=== PATIENT | female | born 1975 | race Two or more races ===

== ENCOUNTER 2020-12-19 15:30 | Outpatient (RCR) | payer OTHER, SELFPAY ==
--- NOTE | 2020-11-09 11:30 | PTOPEVAL ---
INITIAL PHYSICAL THERAPY EVALUATION and PLAN OF CARE Thank you for referring Diego [facility] to [facility] Diego is scheduled to be seen for physical therapy? 2x/week for 4 weeks. Please review, sign, date and return this plan of care WILFRID. I agree with and certify that the following plan of care is medically necessary. Referring Physician Date Admitting Provider: Attending Provider: Dahlia Ochoa DO Referring Provider: *PT Outpatient Evaluation Start: 11/09/20 10:23 Freq: Status: Active Protocol: Document 11/09/20 10:23 GENARO (Rec: 11/09/20 11:29 GENARO [id number]) Therapy Assessment Status Assessment Status Assessment Status Evaluation Outpatient Past Medical History Past Medical History Source of Past Medical History Patient Musculoskeletal History Hx Back Pain Yes Reproductive History Hx Section Yes: 2006 Evaluation Information Problem Diagnosis radiculopathy,lumbar region, dorsalgia Onset July 2020 Subjective Information Began hurting in back and R Query Text:As Reported By Patient/ leg a while ago - but didn't Family get bad until to move to [place] - February 2020. When was ill - helped to take care of him - he has since . With the move - increased lifting and moving items - pain got worse. Very painful in back - sharp pain. Pain runs down R leg - lateral aspect of R foot and lateral lower leg. Pain will disturb her sleep. Increase pain in the mornings. Once she gets moving - pain lessens right away. Less discomfort with walking. Bad with sitting . In standing - a little pain . 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 Home Meds Must Be Re-entered With Each Visit. Home Setting Home Type House,Multiple Levels Environmental Barriers Stairs, Greater than 4 Living Situation With Minor Child,With
--- NOTE | 2020-11-15 08:24 | PCPTNOTE ---
Patient disclosed personal information stating her and her were having trouble. Patient reports her can be very mean and scary at times. Patient reports her has PTSD from his career in . Patient did not say that she was in any physical harm at this time. Patient reports her last past away 2 years ago and she suffered from depression and that is when her back started to hurt.
--- NOTE | 2020-12-03 16:37 | PTOPEVAL ---
PHYSICAL THERAPY RE-EVALUATION and UPDATED PLAN OF CARE Thank you for referring Diego Maldonado to [facility].? Diego has made good gains in PT, but there is still some peripheralization of symptoms into R lateral thigh which I would like to reduce further as well increase core strength and awareness. She is scheduled to continue in physical therapy? 1x/week for 4 weeks. Please review, sign, date and return this plan of care WILFRID. I agree with and certify that the following plan of care is medically necessary. Referring Physician Date Admitting Provider: Attending Provider: Dahlia Ochoa DO Referring Provider: *PT Outpatient Evaluation Start: 11/09/20 10:23 Freq: Status: Active Protocol: Document 12/03/20 15:33 GENARO (Rec: 12/03/20 16:36 GENARO [id number]) Therapy Assessment Status Assessment Status Assessment Status Re-evaluation Evaluation Information Problem Diagnosis radiculopathy,lumbar region, dorsalgia Subjective Information Beryl reports sitting Query Text:As Reported By Patient/ discomfort is only mild now. Family She reports performing repeated trunk extension with work activities. She does not do much heavy lifting at work - but will on occasions. Still constantly busy at home. Pain Assessment Timing of Pain Assessment Timing of Pain Assessment Assessment Pain Scale Pain Scale Used Numeric (1 - 10) Self Report Pain Assessment Lower Back Reported Pain Level 1 Pain Description Aching,Tingling Radicular Pain Location mid lateral R thigh Lowest Pain Intensity 1 Greatest Pain Intensity 3 Pain Score Pain Score 1: Self Report Interventions Used Interventions Used By Clinicians Electrical Stimulation, Exercise,Heat,Manual Therapy Techniques Cervical and Lumbar ROM Lumbar ROM Lumbar Flexion (0-90) 65 Query Text:Active in Degrees Lumbar Extension (0-40) 15 Query Text:Active in Degrees Lumbar Lateral Flexion Right (0-40) 10 Query Text:Active in Degrees Lumbar Lateral Flexion Left (0-40) 15 Query Text:Active in Degrees PT Clinical Summary Clinical Summary Protocol: PTEVCODE PT Clinical Summary Modified Oswestry LBP Questionnaire - 16% Diego has made significant gains in PT - R LE symptoms have centralized from R toe region to proximal/mid lateral thigh prior to PT - after PT
--- NOTE | 2020-12-26 16:09 | PCPTNOTE ---
Patient did not show up for scheduled appointment this date. She has been late for the last 2 appointments. Will call prior to next appointment as reminder.
--- NOTE | 2021-01-04 15:50 | PCPTNOTE ---
Patient did not show up for scheduled appointment this date. This was her re-evaluation appointment. Will see if she calls to reschedule.
--- NOTE | 2021-01-14 13:58 | PCPTNOTE ---
PHYSICAL THERAPY DISCHARGE SUMMARY Admitting Provider: Attending Provider: Dahlia Ochoa DO Patient:Diego Maldonado Date of :1975 Diego has not returned for any further treatments since 12/19/2020. I needed to call her for the last 2 appointments that she attended and she did not show for the final 2 appointments. Therefore she will be discharged at this time. Patient?s initial visit was on 11/09/2020 11:00 and she had a total of 10 visits. The goals have been partially met. When she was last seen on 12/19/20 - her R LE radicular symptoms had peripheralized all the way to the ankle again - but did not go into her R foot. After treatment, her symptoms did centralize again. She had been performing her extension exercises. Work had increased in work load due to being short staffed. Thank you for referring this patient to [facility]. Please review, sign, date and return this discharge summary WILFRID. I have been updated about Diego's current status and I agree with discharge from the above service at this time. Referring Physician Date
== END 2021-01-24 08:39 | disposition home or self-care (01) ==
LOC: ANHHIPT 15:30
PROVIDERS: PCP Family Medicine; Visit Provider Family Medicine
DX: M54.9 Dorsalgia, unspecified (principal); M54.16 Radiculopathy, lumbar region
CPT/HCPCS: 97014; 97110; 97140; 97161; G0283

== ENCOUNTER 2021-11-15 09:15 | Outpatient (RCR) | payer OTHER, SELFPAY ==
--- NOTE | 2021-11-12 08:56 | PTOPEVAL ---
PHYSICAL THERAPY INITIAL EVALUATION. Thank you for referring Diego Maldonado to [facility].? The patient is scheduled to be seen for therapy? 2x/week for 4 weeks. Please review, sign, date and return this plan of care WILFRID. I agree with and certify that the following plan of care is medically necessary. Referring Physician Date Attending Provider: Dahlia Ochoa DO *PT Outpatient Evaluation Start: 11/11/21 Evaluation Information Diagnosis R shoulder and neck pain Onset increased over the last 4 month Subjective Information Pt states for the last couple Query Text:As Reported By Patient/ of month she has had a pain in Family the back of her neck and into her R shoulder that makes holding or carrying things difficult. She reports numbness down her entire arm. She reports increased pain with prolonged sitting and when trying to sleep. She reports her pain is better when she is busy and does not have time to think about it. Pt states the pressure of her bra on her shoulder also will increase her symptoms. 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 Self Report Pain Assessment Right Shoulder(s) Reported Pain Level 5 Pain Frequency Chronic Lowest Pain Intensity 4 Greatest Pain Intensity 8 Pain Aggravating Factors Sitting Interventions Used Interventions Used By Clinicians Education,Exercise,Rest Other Alleviating Interventions staying busy Cervical ROM Cervical Flexion (0-60) 28 active Cervical Extension (0-70) 36 active Cervical Lateral Flexion Right (0-50) 35 active Cervical Lateral Flexion Left (0-50) 35 active Cervical Rotation Right (0-90) 80 active Cervical Rotation Left (0-90) 80 active Upper Extremity Range of Motion Gross Upper Extremity Range of Motion anitra shoulder abduction ~170 Comments anitra shoulder flexion ~145 Upper Extremity Muscle Strength Testing General Upper Extremity Strength anitra shoulder strength equal throughout anitra shoulder flexion and abduction 4+/5 anitra shoulder int/ext rot 4/5 Posture Posture Evaluation View Posterior Head/C-Spine Posture Neutral Position Thoracic Spine Posture Neutral Lumbar Spine Posture Neutral Palpation Assessment Palpation tender with cervical
--- NOTE | 2021-11-29 11:54 | PCPTNOTE ---
Patient did not show up for scheduled appointment this date. Attempted to contact patient but the phone number that is in the computer is not accurate/working.
--- NOTE | 2022-01-03 09:21 | PCPTNOTE ---
Attending Provider: Dahlia Ochoa DO Patient:Diego Maldonado Date of :1975 PHYSICAL THERAPY DISCHARGE SUMMARY. Patient has not returned for any further treatments since 11/15/2021, d/t scheduling conflicts therefore she will be discharged at this time. Patient?s initial visit was on 11/11/2021 15:15 and she had a total of 2 visits. Thank you for referring this patient to [facility]. Please review, sign, date and return this discharge summary WILFRID. I have been updated about the patient's current status and I agree with discharge from the above service at this time. Referring Physician Date
== END 2022-01-07 14:11 | disposition home or self-care (01) ==
LOC: ANHHIPT 09:15
PROVIDERS: PCP Family Medicine; Visit Provider Family Medicine
DX: M54.2 Cervicalgia (principal); M25.511 Pain in right shoulder
CPT/HCPCS: 97110; 97112; 97140; 97161

== ENCOUNTER 2022-07-04 16:59 | Emergency (ER) | payer OTHER, SELFPAY ==
--- NOTE | ~2022-07-04 | XR_ITS ---
EXAMINATION: XR lumbar spine 2-3V DATE: 07/04/2022 17:52 INDICATION: Low back pain TECHNIQUE: Anteroposterior and lateral views of the lumbar spine, and cone-down lateral view of the l umbosacral junction were obtained. COMPARISON: None. FINDINGS: Bone alignment is normal. There is no fracture. There is moderate loss of intervertebral di sc space height at L5-S1. The vertebral body heights are maintained. There is mild facet joint osteoa rthritis of the lower lumbar spine. Tubal ligation clips are noted. IMPRESSION: 1. Mild lower lumbar spondylosis without acute findings. Reviewed, dictated and finalized at location [facility]. [employer]
[2022-07-04 17:23] VITALS: BP 145/89; PULSE 76; RESP 20; TEMP 37.1; O2SAT 100
--- NOTE | 2022-07-04 17:41 | ED.BACK ---
HPI - Back Pain/Injury General Chief Complaint: Back Pain/Injury Stated Complaint: Low back pain Time Seen by Provider: 07/04/22 17:42 Source: patient, family, RN notes reviewed and old records reviewed Mode of arrival: ambulatory Limitations: no limitations History of Present Illness HPI Narrative: 47-year-old female who presents to [facility] accompanied by friend and son with complaints of left shoulder discomfort for the past few month with increased pain past 2 weeks after moving, lumber back pain with radiation down left buttocks to left leg with increase the past 2 weeks since moving also. Patient reports that she has had some problems with her back for a long time and has seen chiropractor. States also some pain in chest muscles with certain movements, denies any palpitations, pressure or shortness of breath. Patient states that she does have some burning, urgency,and frequency of urination for past week, denies any CVA tenderness or visible blood in urine. MD elicited complaint: back pain and other (left shoulder ) Pertinent past history: prior back pain Onset (ago): week(s) (increased 2 weeks) Pain scale (0-10): 10 Similar Symptoms Previously: Yes Treatments prior to arrival: cold therapy, heat therapy, NSAIDS and acetaminophen Work related injury: No Related Data Home Medications Medication Instructions Recorded Confirmed epinephrine 0.3 mg/0.3 mL 0.3 mg IM ONCE PRN Allergic 07/04/22 07/04/22 injection, auto-injector (EpiPen Reaction 2-Amos) Allergies Allergy/AdvReac Type Severity Reaction Status Date / Time meloxicam Allergy Severe Hives Verified 07/04/22 17:38 Penicillins Allergy Severe rash Verified 07/04/22 17:38 Review of Systems Review of Systems: CONSTITUTIONAL: Denies fever, chills, or sweats. CARDIOVASCULAR: Some chest muscle discomfort with certain movement, no chest pressure, palpitations or dyspnea. GASTROINTESTINAL: Denies abdominal pain, nausea, vomiting, or diarrhea. GENITOURINARY: Reports dysuria or hematuria. SKIN: Denies rash or itching. MUSCULOSKELETAL: Reports back pain radiation down left leg.Left posterior shoulder blade pain or myalgia. NEUROLOGIC: Denies headache, numbness, or weakness. All systems reviewed & are unremarkable except as noted in HPI and below PMFSH Past Medical History Medical History (Updated 07/06/22 @ 09:48 by Savi Wood NP) Allergies Arthritis Asthma Surgical History Surgical History (Updated 07/06/22 @ 09:29 by Savi Wood NP) delivery delivered 2004,2006 H/O sinus surgery H/O tubal ligation Family History Family History Mother Asthma Social History Social History Smoking status: Never smoker Second hand tobacco smoke exposure: No Alcohol intake: current Drinks per week: 1 Alcohol use details: wine Substance use: never Substance use type: does not use Living arrangements: with family Occupation/Education: occupation Gender identity (if verbalized by the patient): Female Spiritual care concerns: No Agree to blood products: No Comments At time of signature, agree with nursing past medical, surgical, social and family history. There is no relevant family history pertinent to the presenting complaint Exam Narrative: GENERAL: Well-appearing, well-nourished, and in no acute distress. HEAD: Normocephalic, atraumatic. EYES: PERRLA and EOMI. NECK: Supple. No lymphadenopathy. CHEST: Clear to auscultation. No respiratory distress. HEART: Regular rate and rhythm. Distal pulses palpable and equal, cap refill <3 seconds ABDOMEN: Soft, nontender, nondistended, normal active bowel sounds, no palpable or pulsatile masses. No CVA tenderness, urinary symptoms of frequency, burning and urgency MUSCULOSKELETAL: Normal range of motion and strength in all extremities; 5/5 stre
== END 2022-07-04 18:40 | disposition home or self-care (01) ==
PROVIDERS: Emergency Provider Registered Nurse
DX: S46.912A Strain of unspecified muscle, fascia and tendon at shoulder and upper arm level, left arm, initial encounter (principal); M47.816 Spondylosis without myelopathy or radiculopathy, lumbar region; X58.XXXA Exposure to other specified factors, initial encounter
CPT/HCPCS: 72100; 81003; 99213; G0463

== ENCOUNTER 2023-01-04 16:28 | Emergency (ER) | payer OTHER, SELFPAY ==
[2023-01-04 16:37] VITALS: BP 150/91; PULSE 79; RESP 20; TEMP 37.1; O2SAT 98
--- NOTE | 2023-01-04 16:56 | ED.URI ---
HPI - URI/Sore Throat General Stated Complaint: Shortness of Breath/Cough History of Present Illness HPI Narrative: Patient presents with shortness congestion and cough. No shortness of breath no chest pain. Related Data Home Medications Medication Instructions Recorded Confirmed albuterol sulfate 90 mcg/actuation 2 puff inhalation QID PRN sob 01/04/23 01/04/23 aerosol inhaler Allergies Allergy/AdvReac Type Severity Reaction Status Date / Time meloxicam Allergy Rash Verified 01/04/23 17:14 Review of Systems Review of Systems: CONSTITUTIONAL: Denies chills, or sweats. Reports fever and generalized body aches EYES: Denies visual changes, redness, or discharge. ENT: Denies otalgia. Reports nasal congestion runny nose and sore throat CARDIOVASCULAR: Denies chest pain, palpitations, or edema. RESPIRATORY: Denies dyspnea. Reports occasional cough GASTROINTESTINAL: Denies abdominal pain, nausea, vomiting, or diarrhea. GENITOURINARY: Denies dysuria or hematuria. SKIN: Denies rash or itching. MUSCULOSKELETAL: Denies back pain, joint pain, or myalgia. Reports generalized body aches NEUROLOGIC: Denies headache, numbness, or weakness. PSYCHIATRIC: Denies anxiety or depression. PMFSH Comments At time of signature, agree with nursing past medical, surgical, social and family history. There is no relevant family history pertinent to the presenting complaint Exam Narrative: The patient is a well-developed, well-nourished in no acute distress. SKIN: Skin is warm and dry without erythema, swelling or exudate. There is good turgor. No tenting. HEAD: Atraumatic. Normocephalic. No temporal or scalp tenderness. EYES: Moist and bright. Sclera and conjunctivae normal. No discharge. PERRLA. Extraocular motions intact. Gross visual acuity intact. EARS: Pinna is normal shape and contour. Clear external auditory canals. TM pearly deras with good cone of light, no erythema or suppuration. Bilateral cerumen noted no gross hearing deficit. NOSE: pink, moist mucosa with good air movement. Clear rhinorrhea without nasal flaring. Septum midline. Mouth: moist mucous membranes. THROAT; mild erythema noted to posterior oropharynx with moderate postnasal drainage. Without exudate or ulceration.. Uvula midline. Normal movement of soft palate. NECK: Supple and nontender with full range of motion without discomfort. No meningeal signs. LUNGS: Equal and bilateral breath sounds without rales or rhonchi. Few scattered inspiratory wheezes CHEST: The chest wall is without retractions or use of accessory muscles. HEART: Has a regular rate and rhythm without murmur, gallops, click or rub. ABDOMEN: Soft, nontender with positive active bowel sounds. No rebound tenderness. EXTREMITIES: Without cyanosis, clubbing or edema. Equal 2+ distal pulses and 2 second capillary refill noted. NEUROLOGIC: alert, active, . The patient moves all extremities with normal muscle strength. Normal muscle tone is noted. Normal coordination is noted. NO focal neurological findings noted. Course Course Level of Care: Express Care Visit Vital Signs Vital signs: Vital Signs Temperature 37.1 C 01/04/23 16:37 Pulse Rate 79 01/04/23 16:37 Respiratory Rate 20 01/04/23 16:37 Blood Pressure 150/91 H 01/04/23 16:37 Pulse Oximetry 98 01/04/23 16:37 Oxygen Delivery Room Air 01/04/23 16:37 Temperature 37.1 C 01/04/23 16:37 Pulse Rate 79 01/04/23 16:37 Respiratory Rate 20 01/04/23 16:37 Blood Pressure 150/91 H 01/04/23 16:37 Pulse Oximetry 98 01/04/23 16:37 Oxygen Delivery Room Air 01/04/23 16:37 Please WILFRID schedule a followup visit with your personal physician for further evaluation and treatment. Including recheck and discussion of your blood pressure. If your symptoms persist, change or worsen significantly before you can contact your personal physician then please, without delay, go to the emergency department for further evaluation
== END 2023-01-04 17:20 | disposition home or self-care (01) ==
PROVIDERS: Emergency Provider Nurse Practitioner Family
DX: J06.9 Acute upper respiratory infection, unspecified (principal); J45.909 Unspecified asthma, uncomplicated; Z20.822 Contact with and (suspected) exposure to COVID-19
CPT/HCPCS: 87426; 99213; C9803; G0463

== ENCOUNTER 2023-03-17 18:47 | Emergency (ER) | payer OTHER, SELFPAY ==
[2023-03-17 18:52] VITALS: BP 151/89; PULSE 74; RESP 20; TEMP 36.2; O2SAT 96
--- NOTE | 2023-03-17 18:56 | ED.FEMALEGU ---
HPI - Female Genitourinary General Chief complaint: Urogenital-Female Stated complaint: painful urination/coughing Source: patient and RN notes reviewed Mode of arrival: ambulatory Limitations: no limitations History of Present Illness HPI Narrative: Patient is a 48-year-old female who presents to the [facility] with complaints of cough and congestion for the last couple days. She reports a frequent nonproductive cough. States that she has been experiencing a sore throat and body aches. She reports nasal congestion and drainage. She denies known fevers. Denies chest pain or shortness of breath. Patient also reports urinary frequency and dysuria for the last 2 days. She states that she has had some urgency, but denies hematuria. Related Data Allergies Allergy/AdvReac Type Severity Reaction Status Date / Time meloxicam Allergy Rash Verified 01/04/23 17:14 Review of Systems Review of Systems: CONSTITUTIONAL: Denies fever, chills, or sweats. EYES: Denies visual changes, redness, or discharge. ENT: Denies otalgia. Reports sore throat. Reports nasal congestion and drainage. CARDIOVASCULAR: Denies chest pain, palpitations, or edema. RESPIRATORY: Denies dyspnea. Reports cough. GASTROINTESTINAL: Denies abdominal pain, nausea, vomiting, or diarrhea. GENITOURINARY: Denies dysuria or hematuria. SKIN: Denies rash or itching. MUSCULOSKELETAL: Denies back pain or joint pain. Reports myalgia. NEUROLOGIC: Denies headache, numbness, or weakness. Pertinent positives per HPI. PMFSH Comments At the time of my signature, I reviewed and agree with the nursing past medical, surgical, social, and family history. There is no relevant family history pertinent to the patient complaint. Exam Narrative: GENERAL: This is a well-nourished, well-developed patient, in no apparent distress. HEAD: normocephalic, atraumatic. EYES: Sclera clear/white. Vision is grossly intact. EARS: External ears normal, auditory canals clear and without drainage, TMs normal without perforation. Hearing grossly intact. NOSE: External nose normal. Mild congestion. THROAT: Mucous membranes moist, oropharyngeal erythema without exudate or ulceration. NECK: Neck supple, non-tender without lymphadenopathy, masses or thyromegaly. CARDIOVASCULAR: Regular rate and rhythm without murmurs, gallops, or rubs. RESPIRATORY: Clear to auscultation. Breath sounds equal bilaterally. No wheezes, rales, or rhonchi. GASTROINTESTINAL: Abdomen soft, non-tender, nondistended. Bowel sounds are active. No hepato-splenomegaly, or palpable masses. No guarding. SKIN: warm, intact with no suspicious lesions or rash, good texture and turgor. NEURO: awake, alert, and oriented to person, place and time. There were no obvious focal neurologic abnormalities. EXTREMITIES: No clubbing, cyanosis, or edema. No joint tenderness, effusion, or edema noted. BACK: Nontender without deformity or crepitance. No flank tenderness. Course Course Level of Care: Express Care Visit Vital Signs Vital signs: Vital Signs Temperature 97.2 F L 03/17/23 18:52 Pulse Rate 74 03/17/23 18:52 Respiratory Rate 20 03/17/23 18:52 Blood Pressure 151/89 H 03/17/23 18:52 Pulse Oximetry 96 03/17/23 18:52 Oxygen Delivery Room Air 03/17/23 18:52 Temperature 97.2 F L 03/17/23 18:52 Pulse Rate 74 03/17/23 18:52 Respiratory Rate 20 03/17/23 18:52 Blood Pressure 151/89 H 03/17/23 18:52 Pulse Oximetry 96 03/17/23 18:52 Oxygen Delivery Room Air 03/17/23 18:52 Reviewed MDM - Female Genitourinary MDM Narrative Medical decision making narrative: After 24 hours on antibiotics throw tooth brush away and start using a new one. Increase your Vitamin C. Do not share drinks. Take Motrin alternating with Tylenol for pain and/or fever alternating every 4 hours. Increase fluids, avoid caffeine. Take a probiotic daily or eat a low sugar yogurt while taking the antibiotic. Follow up with [facility]
== END 2023-03-17 19:30 | disposition home or self-care (01) ==
PROVIDERS: Emergency Provider Nurse Practitioner
DX: J02.0 Streptococcal pharyngitis (principal); R30.0 Dysuria
CPT/HCPCS: 81003; 87880; 99213; G0463